=== PATIENT | female | born 1990 | race Two or more races ===

== ENCOUNTER 2025-06-03 07:57 | Inpatient (IN) ==
[2025-06-03] MEDS ORDERED: CALCIUM CARBONATE CHEW 500 MG TABLET PO PRN (08:07)
[2025-06-03] MEDS ORDERED: LABETALOL 20 MG/4 ML SYRINGE IVP PRN ×5 (08:07→19:41)
[2025-06-03] MEDS ORDERED: METHYLERGONOVINE 0.2 MG/ML VIAL IM PRN ×2 (08:07→19:41)
[2025-06-03] MEDS ORDERED: CARBOPROST TROMETHAMINE 250 MCG/ML VIAL IM PRN (08:07)
[2025-06-03] MEDS ORDERED: fentaNYL 100 MCG/2 ML VIAL IVP PRN ×2 (08:07→09:25)
[2025-06-03] MEDS ORDERED: hydrALAZINE INJ 20 MG/ML VIAL IVP PRN ×4 (08:07→19:41)
[2025-06-03] MEDS ORDERED: ACETAMINOPHEN 500 MG TABLET PO PRN ×2 (08:07→09:25)
[2025-06-03] MEDS ORDERED: SODIUM CHLORIDE FLUSH 0.9% 10 ML SYRINGE IVP PRN (08:08)
[2025-06-03] MEDS ORDERED: OXYTOCIN 10 UNIT/ML VIAL IM PRN (08:08)
[2025-06-03] MEDS ORDERED: ONDANSETRON 4 MG/2 ML VIAL IVP PRN ×2 (08:08→15:48)
[2025-06-03] MEDS ORDERED: TRANEXAMIC ACID IN NACL 1,000 MG/100 ML BAG IV PRN ×2 (08:08→19:41)
[2025-06-03] MEDS ORDERED: TERBUTALINE 1 MG/ML VIAL SUBQ PRN (08:08)
[2025-06-03] MEDS: SODIUM CHLORIDE FLUSH 0.9% 10 ML SYRINGE IVP SCH (08:40)
[2025-06-03] MEDS: ONDANSETRON ODT 4 MG TABLET PO PRN (08:57)
--- NOTE | 2025-06-03 09:08 | HISTORY & PHYSICAL EXAMINATION ---
Admit History Visit Reason Visit Reason: Other (Here for scheduled induction of labor) : 6 Parity: 3 Care: positive [facility] Risk/History: positive None Complications This : positive Gestational diabetes (GDM A1) and Other (Rh neg, elevated AFP, anxiety, iron def, daughter with VSD) Smoking Status: Never smoker Mother's Labs Mother's Blood Type: positive A Mother's RH: positive Negative GBS: positive Group B Step Negative Rubella Status: positive Immune Other Maternal History Other Maternal History: Shila is a 34 yo at 39+4 wks here for scheduled induction of labor for GDM A1. She denies regular/painful contractions, leakage of fluid, vaginal bleeding, or decreased movements. She is overall feeling well today. Expected Delivery Route/Plan IOL 06/02 at 0800 Specific Issues/Plans LMP:08/28/24 (uncertain) ELVIS by LMP:06/04/25 US:11/02/24 9w1d ELVIS 06/06/25 Final ELVIS: 06/06/25 by 9 wk US Problems: - Elevated AFP, referred to . Saw GC, declined diagnostic testing. Anatomy US at , spine and heart views not well seen, anatomy survey completed on 02/14. - 3rd trimester growth US (~32 and 36wks) at . Growth US scheduled for 04/10 (EFW 70%tile, normal NAE) and 05/09. - weekly NSTs 36wk - Rh neg - A1DM, H/o A1DM prior - checking BGs, referred to DM education (declined) - H/o anxiety, on sertraline - Daughter dx with VSD, healed on its own. echo (02/07) and maternal echo (01/01) wnl. - Baby aspirin recommended - Shortness of breath/palpitations: Likely discomforts of , but will get monitoring manager. - Fe deficiency - ferritin 7 on 04/27, Fe infusion on 04/27, 2nd scheduled for 05/02. Partner - Scottie (G6PD def) Pre- Weight:194 BMI:33.3 Blood type: A- will need Rhogam at 28 weeks Given 03/22 Antibody Screen:neg CBC: H/H/PLT 12.6/37.6 244 RUB:immune VZV: immune HBsAg: neg HepC: NR RPR: NR HIV:NR Flu:Declines 03/22 Covid:Declines 03/22 PAP:06/06 - ASCUS GC/CT:neg HSV:denies in self and partner Genetic testing:[id number] neg. AFP elevated Early Glucola: early A1C wnl FAS: 01/24 UW Placenta:posterior without previa Cord:3VC NAE:WNL EFW:441g 64% Spine and cardiac views not well seen. F/u US 02/14/25: Anatomy survey completed EFW 77%tile, post placenta, normal NAE. 50gm OGCT:182 3HR GTT:84/219/195/168 TDAP:03/08/25 Breast Pump: has one Flu: Declines 03/22 Covid: Declines 03/22 RSV: 04/18/25 Antibody screen:negative CBC:H/H/PLT 11.0/33.5 207 RPR: NR RHOGAM: 03/22 GBS: collected 05/08-negative Delivery plan:39wk IOL, desires either 06/02 or 06/04 PP BC: Scottie s/p vasectomy Meds/Allgy Home Medications Ambulatory Orders Medication Instructions Recorded Confirmed sertraline 200 mg capsule 200 mg PO Q24H 05/30/2405/15 vits no.126-ferrous fum 1 tab PO DAILY 06/03/25 28 mg iron-folic acid 800 mcg tablet (Classic ) aspirin 81 mg tablet,delayed 81 mg PO QDAY preeclampsi a 11/21/24 06/03/25 release prevention #180 tabs blood sugar diagnostic (Blood #50 ea 02/28/25 05/23/25 Glucose Test strips) blood-glucose meter (Blood Glucose #1 ea 02/28/2505/14 Monitoring kit) lancets 33 gauge #100 ea 02/28/25 05/23/25 Allergies Allergies Allergy/AdvReac Type Severity Reaction Status Date / Time Penicillins Allergy Unknown Unknown Verified 05/16/25 10:06 PFSH Active Problems All Active Problems (Updated 04/10/25 @ 15:54 by Andrew Cuba MD) Restless leg syndrome in (Acute) Anemia affecting (Acute) Palpitations (Acute) Rh negative status during (Acute) Glucose intolerance of (Acute) Elevated serum alpha-fetoprotein level (Acute) Family history of congenital heart defect (Acute) Supervision of elderly multigravida (Acute) Anxiety (Acute) Asthma (Acute) Cervical cancer screening (Acute) Contraception management (Acute) Normal gynecologic examination (Acute) Pelvic pain in female (Acute) Medical History Medical History (Updated 04/10/25 @ 15:54 by Andrew Cuba MD) Shortness of breath UTI (urinary tract infection) Surgical History Surgical History (Updated 10/23/24 @ 11:02 by Shazia Manjarrez RN) History of cholecystectomy H/O colonoscopy Hx of tonsillectomy Family History Family History (Updated 10/23/24 @ 11:03 by Shazia Manjarrez RN) Mother Breast cancer High blood pressure Alcoholism Depressed Anxiety Aortic aneurysm Grandfather CAD (coronary artery disease) Diabetes Liver cancer Social History Social History (Updated 02/09/25 @ 10:48 by Bindu Parker MA) Smoking Status: Never smoker Do you vape?: No Do you feel safe in your home environment?: Yes History of physical, verbal, emotional, or financial abuse?: No ETOH Use: None Substance Use: denies use Are you sexually active?: Yes POLST Patient has POLST: No POLST CPR Status: Attempt Resuscitation (CPR) Level of Medical Intervention: Full Treatment Review of Systems Status of ROS: 10 or more systems reviewed and unremarkable except as noted in history and below Physical Abdominal Exam Vital Signs: Reviewed Contraction Frequency (min/apart): Irreg Contraction Intensity: positive Mild Monitoring Heart Rate Baseline: 130s Strip Review: positive Category I Presentation Presentation: positive Vertex (by Amrit's) Vaginal Exam Membranes: positive Membranes intact Dilation (in cm): cl Effacement (%): long Station: positive -3 Cervical Position: positive Posterior Speculum Exam Speculum Exam Performed: positive No Plan for Labor Plan For Labor I expect patient to be DC'd or transferred within 96 hours.: Yes Plan for Labor: (1) Gestational Diabetes A1, third trimester - Check glucose with admission and then 2' PP until active labor/epidural placed. - Reviewed plan for induction, including cervical ripening methods, amniotomy, and Pitocin. Intrapartum procedures also reviewed. Consent form for induction and vaginal delivery reviewed, and discussed risks of interventions and delivery, including uterine tachysystole, intolerance of labor, need for operative delivery or emergent , bleeding, infection, and injuries to patient and/or . - Recommend start of cervical ripening with misoprostol 50 mg PO. - GBS neg - PPH risk currently low - VTE prophy: ambulation until epidural placed - Anticipate (2) Anxiety - Cont home meds Sertraline 200 mg Q HS (3) RH neg - Rhogam PP prn baby RH pos (4) Iron deficiency - Check ferritin on admission. Consider iron infusion (5) at 39 wks Conclusion/Plan Lab Results Lab results reviewed: Yes 06/03/25 08:38 06/03/25 08:38
[2025-06-03 09:16] LABS: HCT - HEMATOCRIT 33.0 % (37.0-47.0); HGB - HEMOGLOBIN 11.3 g/dL (12.0-16.0); MEAN PLATELET VOLUME 10.6 fL (7.9-10.8); NRBC ABSOLUTE COUNT (AUTO) 0.00 x10^3/uL; NUCLEATED RED BLOOD CELLS AUTO 0.0 /100WBC; PLT - PLATELET COUNT 188 10^3/uL (130-450); RED CELL DISTRIBUTION WIDTH 16.0 % (12.0-15.0)
[2025-06-03 09:30] LABS: ALT ALANINE AMINOTRANSFERASE 7.0 IU/L (10-60); AST ASPARTATE AMINOTRANSFERASE 11.0 IU/L (10-42); BUN - BLOOD UREA NITROGEN 6.0 mg/dL (6-20); CARBON DIOXIDE - CO2 21.0 mmol/L (21-32); CREATININE 0.6 mg/dL (0.6-1.3); GFR - MDRD 113.0 (>89)
[2025-06-03] MEDS ORDERED: MORPHINE 10 MG/ML VIAL IVP PRN (09:30)
[2025-06-03] MEDS ORDERED: MORPHINE 10 MG/ML VIAL IM PRN (09:30)
--- NOTE | 2025-06-03 12:01 | PHARMACY PROGRESS NOTE ---
Best Possible Medication History Admit Date and Time: 06/03/25 [id number] Home Medications Medication Instructions Recorded Confirmed Type sertraline 200 mg capsule 200 mg PO Q24H 05/30/2405/15 History vits no.126-ferrous fum 1 tab PO DAILY 06/03/25 History 28 mg iron-folic acid 800 mcg tablet (Classic ) aspirin 81 mg tablet,delayed 81 mg PO QDAY preeclampsi a 11/21/24 06/03/25 Rx release prevention #180 tabs blood sugar diagnostic (Blood #50 ea 02/28/25 05/23/25 Rx Glucose Test strips) blood-glucose meter (Blood Glucose #1 ea 02/28/2505/14 Rx Monitoring kit) lancets 33 gauge #100 ea 02/28/25 05/23/25 Rx Processed by: Pharmacy Medications reviewed in ED?: No Medication History completed: Yes [facility] Statement: As the person ultimately responsible for medication therapy, providers are able to order a medication from an existing home medication list in [facility] via the "Reconcile Routine" prior to Confirmation of that medication by business support. Such practice is discouraged except when the physician, in their clinical judgment, deems that a medical need exists for a medication without regard to previous use.
[2025-06-03] MEDS ORDERED: OXYTOCIN/SODIUM CHLORIDE 500 ML IV SCH (15:00)
[2025-06-03] MEDS ORDERED: LIDOCAINE 2%-EPI 1:100000 20 ML MDV ONE (15:12)
[2025-06-03] MEDS ORDERED: ROPIVACAINE 0.2% 200 MG/100 ML BAG EP ONE (15:12)
[2025-06-03] MEDS: LACTATED RINGERS 1,000 ML IV PRN (15:16)
[2025-06-03] MEDS ORDERED: NALOXONE 0.4 MG/ML VIAL IVP PRN (15:48)
[2025-06-03] MEDS ORDERED: ROPIVACAINE 0.2% 200 MG/100 ML BAG EP PRN (15:48)
[2025-06-03] MEDS ORDERED: ePHEDrine 50 MG/ML VIAL IVP PRN (15:48)
--- NOTE | 2025-06-03 15:48 | ANESTHESIA PROCEDURE NOTE ---
Pre-Anesthesia VS, & Labs Diagnosis Surgical Diagnosis:: Active labor Procedure Procedure: vaginal delivery Vitals Vital Signs: Temp Pulse Resp BP 37.2 C 88 16 99/60 06/03/25 09:15 06/03/25 09:15 06/03/25 09:15 06/03/25 09:15 NPO NPO: Other (clear liquids during labor) Is Patient ?: Yes Lab Results Current Lab Results: Laboratory Tests 06/03/25 15:03: POC Whole Bld Glucose 95 06/03/25 08:38: WBC 6.4, RBC 3.30 L, Hgb 11.3 L, Hct 33.0 L, MCV 100.0 H, MCH 34.2 H, MCHC 34.2, RDW 16.0 H, Plt Count 188, MPV 10.6, Neut # (Auto) 4.1, Lymph # (Auto) 1.9, Grady # (Auto) 0.4, Eos # (Auto) 0.1, Baso # (Auto) 0.0, Absolute Nucleated RBC 0.00, Nucleated RBC % 0.0, Sodium 137, Potassium 3.6, Chloride 108, Carbon Dioxide 21, Anion Gap 8.0, BUN 6, Creatinine 0.6, Estimated GFR (MDRD) 113, Glucose 83, Calcium 8.7, Ferritin 101.4, Total Bilirubin 0.3, AST 11, ALT 7 L, Alkaline Phosphatase 72, Total Protein 5.7 L, Albumin 3.5, Globulin 2.2, Albumin/Globulin Ratio 1.6, Blood Type A NEGATIVE, Antibody Screen NEGATIVE Lab results reviewed: Yes 06/03/25 08:38 06/03/25 08:38 Meds/Allgy Home Medications Ambulatory Orders Medication Instructions Recorded Confirmed sertraline 200 mg capsule 200 mg PO Q24H 05/30/2405/15 vits no.126-ferrous fum 1 tab PO DAILY 06/03/25 28 mg iron-folic acid 800 mcg tablet (Classic ) aspirin 81 mg tablet,delayed 81 mg PO QDAY preeclampsi a 11/21/24 06/03/25 release prevention #180 tabs blood sugar diagnostic (Blood #50 ea 02/28/25 05/23/25 Glucose Test strips) blood-glucose meter (Blood Glucose #1 ea 02/28/2505/14 Monitoring kit) lancets 33 gauge #100 ea 02/28/25 05/23/25 Allergies Allergies Allergy/AdvReac Type Severity Reaction Status Date / Time Penicillins Allergy Unknown Unknown Verified 05/16/25 10:06 PFSH Active Problems All Active Problems (Updated 04/10/25 @ 15:54 by Andrew Cuba MD) Restless leg syndrome in (Acute) Anemia affecting (Acute) Palpitations (Acute) Rh negative status during (Acute) Glucose intolerance of (Acute) Elevated serum alpha-fetoprotein level (Acute) Family history of congenital heart defect (Acute) Supervision of elderly multigravida (Acute) Anxiety (Acute) Asthma (Acute) Cervical cancer screening (Acute) Contraception management (Acute) Normal gynecologic examination (Acute) Pelvic pain in female (Acute) Medical History Medical History (Updated 04/10/25 @ 15:54 by Andrew Cuba MD) Shortness of breath UTI (urinary tract infection) Surgical History Surgical History (Updated 10/23/24 @ 11:02 by Shazia Manjarrez RN) History of cholecystectomy H/O colonoscopy Hx of tonsillectomy Family History Family History (Updated 10/23/24 @ 11:03 by Shazia Manjarrez RN) Mother Breast cancer High blood pressure Alcoholism Depressed Anxiety Aortic aneurysm Grandfather CAD (coronary artery disease) Diabetes Liver cancer Social History Social History (Updated 02/09/25 @ 10:48 by Bindu Parker MA) Smoking Status: Never smoker Do you vape?: No Do you feel safe in your home environment?: Yes History of physical, verbal, emotional, or financial abuse?: No ETOH Use: None Substance Use: denies use Are you sexually active?: Yes POLST Patient has POLST: No POLST CPR Status: Attempt Resuscitation (CPR) Level of Medical Intervention: Full Treatment Anesthesia Exam (Expanded) Exam General: Alert, Oriented x3 and Cooperative Dental: WNL Mouth Openin Fingerbreadth Neck Mobility: Normal Mallampati classification: III Thyromental Distance: 4-6 cm Exam Exam Vital Signs: Vital Signs x48h Temp Pulse Resp BP 06/03/25 09:15 37.2 C 88 16 99/60 Plan Plan Anesthesia Type: Epidural Consent for Procedure(s) Verified and Reviewed: Yes Code Status: Attempt Resuscitation ASA Classification ASA classification: 2-Mild systemic disease Is this case an emergency?: No
--- NOTE | 2025-06-03 18:30 | PROVIDER PROGRESS NOTE ---
Labor Progress Note Labor Progress Note Labor Progress Note/Additional Text: S/ Patient currently comfortable but had significant cramping after PO (buccal) miso 50 mcg (administered at 0949). Denies leakage of fluid or bleeding. Approx 3-4 hrs post-miso, FHR was notable for change in baseline to 150-160s. She has had occ variable and late-appearing decels but not consistent/repetitive O/ AFEB, VS notable for intermittent hypotension (without medications) FHT 130s, mod variability, accels present, rare late/variable decels [place] Ctx Q 3-6 min, more mild now Cvx: 4/60/-2 --> Amniotomy performed at 1445 with clear fluid noted. A/P IOL for GDM A1, progressing very well in labor s/p buccal miso x 1 dose. FHT with occ decels but currently cat 1 and reassuring. - May have epidural if/when desired. - Monitor for hypotension after insertion. - Monitor contraction frequency post-amniotomy. Consider start of Pitocin to maintain contractions Q 2-3 min. Order placed
--- NOTE | 2025-06-03 18:33 | PROVIDER PROGRESS NOTE ---
Labor Progress Note Labor Progress Note Labor Progress Note/Additional Text: S/ Patient feeling more pressure with contractions. RN exam noted patient to be 9.5 cm (anterior lip). O/ AFEB, VSS Cvx 8/100/+1 FHT 130s, mod variability, + accels, rare variable decels [place] with spontaneous contractions Q 2-4 min A/P IOL for GDM A1 - making excellent progress. FHT cat 1-2, overally reassuring. - Anticipate pushing soon and .
[2025-06-03] MEDS: OXYTOCIN/SODIUM CHLORIDE 500 ML IV PRN (19:25)
[2025-06-03] MEDS ORDERED: LABETALOL 5 MG/1 ML 20 ML MDV IVP PRN (19:41)
[2025-06-03] MEDS ORDERED: WITCH HAZEL/GLYCERIN 1 PAD TOP PRN (19:41)
[2025-06-03] MEDS ORDERED: OXYTOCIN/SODIUM CHLORIDE 500 ML IV PRN (19:41)
[2025-06-03] MEDS ORDERED: RHO(D) IMMUNE GLOBULIN 300 MCG SYRINGE IM PRN (19:41)
--- NOTE | 2025-06-03 19:57 | DELIVERY NOTE ---
Delivery Note Labor Labor: positive Augmented by ARM Delivery Method Delivery Method: positive Spontaneous vaginal delivery Cervical Ripening Method Cervical Ripening Method: positive Misoprostil Presentation Presentation: positive Vertex Nuchal Cord Nuchal Cord: positive None Amniotic Fluid Description Amniotic Fluid Description: positive Clear Episiotomy Type Episiotomy Type: positive None Laceration Laceration: positive None Delivery Outcome Delivery Date: 06/03/25 Delivery Time: 19:16 Delivery Outcome: positive Livebirth : positive Placed in direct skin contact with mother, Bulb syringe, Stimulated and Warmed [place] sex: positive Male Cord Cord: positive 3 vessels Placenta Placenta: positive Intact Estimated Blood Loss Estimated Blood Loss (in cc): 356 Post Delivery Events Post Delivery Events: positive No post delivery events Delivery Comments (Free Text/Narrative) Delivery Comments (Free Text/Narrative): L and D vaginal delivery note This 34 year-old, now P4 at 39+4 wks gestation presented for induction of labor for GDM A1. Cervix was closed/thick/high/posterior on admission, and Vert ex presentation by carlos's and recent clinic US. GBS was neg, treated. Misoprostol 50 mcg buccal x 1 dose resulted in contractions and dilation to 4 cm. Amniotomy was then performed at 1445, and she progressed without further need for Pitocin augmentation. FHR pattern was cat 1-2 during labor and overall reassuring. Epidural placed upon maternal request. She progressed to complete/complete/+1 at 1832 and felt pressure to start pushing. Second stage began @ 1839. FHR during pushing was cat 2 with deep late decels (as low as 60- 70s) after contractions and pushing. FHT would then return to baseline with mod variability present. She was pushing with excellent efforts and making progress. Forceps were discussed and readied, but patient started to make improved descent. : Normal spontaneous vaginal delivery of a viable male infant on 06/03/2025 @ 1916. No nuchal cord was noted. The was placed on maternal abdomen, stimulated, dried and placed skin to skin. Apgars 5 & 8 @ 1 & 5 minutes. [place] weight was 4044 gm (8 lb 14.6 oz). Cord gases were obtained and later showed ABG 7.276/-6.4, VBG 7.285/-6. The umbilical cord doubly clamped at 1 min and cut by the father of the baby. Exam noted 3VC. Cord blood was obtained. The baby was briefly taken to the warmer for additional chest PT. Fundal massage and gentle cord traction applied for active management of the third stage, and placenta delivered spontaneously and intact and appeared normal @ 1925. Pitocin bolus was started. The perineum was examined and intact. QBL was 356 ml. Placenta was not sent to pathology. Uterine massage was performed until uterus was deemed firm. Lower uterine segment was swept with bimanual exam, confirming firmness and not residual clots or tissue. Needle and sponge counts were correct. Uterine fundus firm and there is no excessive bleeding. Skin to skin re- initiated. Family bonding well. Both mother and baby are in stable condition.
[2025-06-03] MEDS: IBUPROFEN 600 MG TABLET PO PRN (22:18)
[2025-06-04] MEDS: ACETAMINOPHEN 500 MG TABLET PO PRN (01:34)
[2025-06-04] MEDS: SERTRALINE 50 MG TABLET PO SCH (01:45)
[2025-06-04 05:52] LABS: HCT - HEMATOCRIT 35.1 % (37.0-47.0); HGB - HEMOGLOBIN 11.5 g/dL (12.0-16.0); MEAN PLATELET VOLUME 10.5 fL (7.9-10.8); PLT - PLATELET COUNT 170.0 10^3/uL (130-450); RED CELL DISTRIBUTION WIDTH 14.9 % (12.0-15.0)
[2025-06-04] MEDS: DOCUSATE SODIUM 100 MG CAPSULE PO SCH (08:55)
--- NOTE | 2025-06-04 09:32 | Discharge Summary ---
Discharge Summary Admit Date: 06/03/25 Discharge Date: 06/04/25 Discharge [facility] Name[facility] MD DIAGNOSES Admission Diagnoses: 39 weeks gestation A1 gestational diabetes managed with diet and exercise Rh- Iron deficiency anemia Discharge Diagnoses with Status of Each Condition: Same Delivery of live david Status post spontaneous vaginal delivery HPI History of Present Illness: Subjective Patient reports she is doing well. Lochia appropriate. Denies heavy bleeding. Ambulating. Pelvic and abdominal pain well-controlled. Tolerating oral intake. Diet: Regular. Voiding without difficulty. Passing flatus. Denies BM. Patient is bonding with baby in room Breast feeding going well. Denies feeling lightheaded, dizzy or excessively fatigued. control: Partner vasectomy Objective General: Alert, oriented, no apparent distress. Cardiovascular: Regular rate. Regular rhythm. Lungs: No increased work of breathing. Abdomen: Uterus firm. Below umbilicus. No guarding or rebound. Extremities: No pain on palpation. No cords palpated. Distal pulses intact. HOSPITAL COURSE Hospital Course: Patient present at 39 weeks gestation for induction of labor. She was given misoprostol for 1 dose then amniotomy was performed. She progressed on her own until complete and ready to push. Delivery was uncomplicated with Apgars of 5 and 8 and weight of 4044 g. Patient was counseled on bleeding, pain control, depression prior to discharge. ALLERGIES Allergies Allergy/AdvReac Type Severity Reaction Status Date / Time Penicillins Allergy Unknown Unknown Verified 05/16/25 10:06 MEDICATIONS Ambulatory Orders Medication Instructions Recorded Confirmed sertraline 200 mg capsule 200 mg PO Q24H 05/30/2405/15 vits no.126-ferrous fum 1 tab PO DAILY 06/03/25 28 mg iron-folic acid 800 mcg tablet (Classic ) aspirin 81 mg tablet,delayed 81 mg PO QDAY preeclampsi a 11/21/24 06/03/25 release prevention #180 tabs PHYSICAL EXAM AT DISCHARGE Vital Signs: Vital Signs x48h Temp Pulse Resp BP BP Pulse Ox 06/04/25 08:41 36.7 C 78 16 101/58 L 96 06/04/25 01:59 61 16 88/43 L 96 LABS 06/04/25 05:44 06/03/25 08:38 FOLLOW UP Follow Up: With [facility] in 1 week TIME SPENT Time Spent in Discharge (Minutes): 20 Discharge Plan Discharge Patient Disposition: 01 Home, Self Care Medically Cleared Date:: 06/04/25 Prescriptions: Continued sertraline 200 mg capsule 200 mg PO Q24H Classic 28 mg iron- 800 mcg tablet 1 tab PO DAILY aspirin 81 mg tablet,delayed release (DR/EC) 81 mg PO QDAY Qty: 180 0RF Discontinued (DME) Blood Glucose Test Strip See Rx Instructions .ROUTE .MEDSUPPLY Qty: 50 6RF Rx Instructions: Check blood sugar fasting in the morning and then 2 hours after breakfast, lunch, and dinner. Keep log of values. (DME) blood-glucose meter [Blood Glucose Monitoring] Kit See Rx Instructions .ROUTE .MEDSUPPLY Qty: 1 0RF Rx Instructions: Check blood sugar fasting in the morning and then 2 hours after breakfast, lunch, and dinner. Keep log of values. (DME) lancets 33 gauge misc See Rx Instructions .ROUTE .MEDSUPPLY Qty: 100 3RF Rx Instructions: Check blood sugar fasting in the morning and then 2 hours after breakfast, lunch, and dinner. Keep log of values. Activity Restrictions: Additional Comments Diet: Regular Print Language: Frisian Patient Instructions: Care Vaginal ... Follow-up Care: Andrew Cuba MD [Provider Admit Priv/Credential, Obstetrics/Gynecology] MALCOLM SEYMOUR PA-C [Primary Care Provider, Physician Nylon Machine Operator] Vitals documented within 30 minutes of discharge?: Yes (See charting)
[2025-06-04 17:08] VITALS: TEMP 97.9
[2025-06-04 21:03] VITALS: BP 102/66; O2SAT 98
--- NOTE | 2025-06-04 22:26 | Labor Flowsheet ---
Labor Flowsheet Datetime Report Generated by CPN: 06/04/2025 22:26 Datetime: 06/04/2025 20:54 VITAL SIGNS NBP Sys/Heike/Mean (mmHg): 102 : 66 : 74 Pulse: 65 SpO2 (%): 97 Datetime: 06/03/2025 21:30 Stage of : Datetime: 06/03/2025 19:40 Temperature (C): 36.9 PAIN Pain Scale: 0 Pain Presence: None/Denies Datetime: 06/03/2025 19:24 MEDICATIONS Pitocin (milliunits): Started @ PP Bolus Datetime: 06/03/2025 19:16 UTERINE ACTIVITY Monitor Mode: External Monitor Interventions for UA: Nesbitt Adjusted Frequency (min): 3-4 Duration (sec): 120-180 Pattern: Normal: <= 5 Contractions in 10 Minutes Contraction Comments: pt pushing - rn and md at bedside ASSESSMENT A Monitor Mode: External US Monitor Interventions for FHR: Ultrasound Adjusted Comments: fhr indeterminate - pt pushing - rn and md at bedside Datetime: 06/03/2025 19:15 LaborFlag: Labor Datetime: 06/03/2025 19:03 COMMUNICATION Communication: RN Reviewed Strip Datetime: 06/03/2025 19:00 Decelerations: Variable Category: Category II Communication Comments: Discussion of forcep delivery-verbal consent from patient and spouse Datetime: 06/03/2025 18:58 Patient Position/Activity: Right Lateral Datetime: 06/03/2025 18:45 FHR Baseline Rate : 135 Variability: Moderate 6-25 bpm Accelerations: 15X15 Datetime: 06/03/2025 18:39 STAGE 2 Pushing: Urge to Push Pushing Position: Pushing with Contractions; Pushing Lithotomy Pushing Progress: Descent with Pushing Datetime: 06/03/2025 18:34 I/O Interventions: [place] Discontinued Datetime: 06/03/2025 18:32 VAGINAL EXAM Dilatation (cm): 10.0 Station: 1 Exam by: Brandan MD Datetime: 06/03/2025 18:11 Effacement (%): 100 Datetime: 06/03/2025 17:47 Provider Notified (Name): dr> Brandan Notification Reason: Labor Status Datetime: 06/03/2025 17:44 Vaginal Bleeding: Small Datetime: 06/03/2025 17:03 Membranes Ruptured Date/Time: 06/03/2025 14:45 Amniotic Fluid Odor: None Datetime: 06/03/2025 16:11 Actions for Decelerations: Blood Pressure; Provider Notified Datetime: 06/03/2025 15:37 Epidural Procedure Other: Pump Started Datetime: 06/03/2025 15:30 Epidural Procedure: Loading Dose Datetime: 06/03/2025 15:29 FHR Baseline Changes: No Baseline Change Datetime: 06/03/2025 15:19 Pain Coping: Requesting Pain Medication or Epidural PROCEDURE TIME OUT Procedure Verify: Correct Patient Identity; Accurate Procedure Consent Form; Agreement on Procedure to be Done; Correct Patient Position; Safety Precautions Based on Patient History or Medication Use ANESTHESIA Anesthesia Plans: Epidural Epidural Positioning: Sitting Datetime: 06/03/2025 15:16 PATIENT CARE IV/Blood Work: IV Bolus Started Datetime: 06/03/2025 15:10 Anesthesia Comments: A. Jose Elias PURCHASING MANAGER requested for patient epidural request Datetime: 06/03/2025 14:50 Membrane Status: Ruptured Membranes Rupture Method: Artificial Amniotic Fluid Color: Clear Datetime: 06/03/2025 14:45 Amniotic Fluid Amount: Large Datetime: 06/03/2025 13:24 Temperature Route: Oral Datetime: 06/03/2025 13:00 Quality: Mild Resting Tone (Palpate): Relaxed Datetime: 06/03/2025 12:24 Pain Assessment Comments: K-Pad Datetime: 06/03/2025 09:49 Cervical Ripening Agents: Cytotec @ Datetime: 06/03/2025 09:01 Cervix, Position: Posterior Vaginal Exam Comments: Unable to reach cervix for assessment Datetime: 06/03/2025 08:57 Antiemetics/Antacids: Zofran (mg) @ 4
== END 2025-06-04 21:10 | disposition home or self-care (01) | DRG 805 ==
LOC: WFO 07:57 → FBP 07:59
PROVIDERS: ADMIT Obstetrics & Gynecology; ATTEND Obstetrics & Gynecology